=== PATIENT | male | born 1945 | race Caucasian/White ===

== ENCOUNTER → 2017-04-25 | Outpatient (CLI) | payer MEDICARE, BC ==
[~2017-04-25] MED LIST: ASPI81EC PO; ATOR80; CALCAVITD PO; IBUP400 PO; LOSA25; LOVA40 PO; METO25; MULVITMINF PO
== END | disposition home or self-care (01) ==
LOC: PLD 08:38 → LAB SHORT 08:38
DX: L57.0 Actinic keratosis (principal)
CPT/HCPCS: 88305

== ENCOUNTER 2021-07-12 11:55 | Day surgery (SDC) | payer MEDICARE, BC ==
[~2021-07-12] VITALS: Ht 167.6 cm; Wt 82.8 kg
--- NOTE | 2021-07-12 13:53 | NUR ---
07/12/21 3719 Angely Hensley TIMEOUT AND SITE CHECK DONE WITH DR VANG FOR NERVE BLOCK.
--- NOTE | 2021-07-12 14:48 | NUR ---
07/12/21 1448 ROSA DELANEY LIDOCAINE 1% MIXED WITH 0.3ML OF EPINEPHRINE TO CREATE A LOCAL SOLUTION OF LIDOCAINE 1% WITH 1:100,000 EPI. 10MLS INJECTED INTO OPSITE A LOCAL INJECTION.
== END 2021-07-12 16:12 | disposition home or self-care (01) ==
LOC: ORSCSDS 11:55
PROVIDERS: Orthopaedic Surgery
PROC: 0LM14ZZ Reattachment of Right Shoulder Tendon, Percutaneous Endoscopic Approach (ICD-10-PCS; principal; 2021-07-12 13:30)
PROC: 0RNJ4ZZ Release Right Shoulder Joint, Percutaneous Endoscopic Approach (ICD-10-PCS; principal; 2021-07-12 13:30)
PROC: 3E0U3GC Introduction of Other Therapeutic Substance into Joints, Percutaneous Approach (ICD-10-PCS; principal; 2021-07-12 13:30)
PROC: 0RBJ4ZZ Excision of Right Shoulder Joint, Percutaneous Endoscopic Approach (ICD-10-PCS; principal; 2021-07-12 13:30)
DX: M75.121 Complete rotator cuff tear or rupture of right shoulder, not specified as traumatic (principal); M75.21 Bicipital tendinitis, right shoulder; M75.41 Impingement syndrome of right shoulder; I10 Essential (primary) hypertension; I25.10 Atherosclerotic heart disease of native coronary artery without angina pectoris; E78.5 Hyperlipidemia, unspecified; Z79.899 Other long term (current) drug therapy; Z79.82 Long term (current) use of aspirin; Z87.891 Personal history of nicotine dependence
CPT/HCPCS: 29827; 29826; 29823; 0232T; C1713; C9781; J0171; J0690; J1100; J2250; J2370; J2405; J2704; J3010; J7120

== ENCOUNTER 2022-07-03 12:08 | Day surgery (SDC) | payer MEDICARE, BC ==
[~2022-07-03] VITALS: Ht 167.6 cm; Wt 83.2 kg
[2022-07-03 14:27] VITALS: BP 108/89
== END 2022-07-03 14:30 | disposition home or self-care (01) ==
LOC: ORSCSDS 12:08
PROVIDERS: Internal Medicine Gastroenterology
PROC: 0DBM8ZX Excision of Descending Colon, Via Natural or Artificial Opening Endoscopic, Diagnostic (ICD-10-PCS; principal; 2022-07-03 13:30)
PROC: 0DBL8ZX Excision of Transverse Colon, Via Natural or Artificial Opening Endoscopic, Diagnostic (ICD-10-PCS; principal; 2022-07-03 13:30)
DX: Z12.11 Encounter for screening for malignant neoplasm of colon (principal); Z86.010 Personal history of colon polyps; D12.4 Benign neoplasm of descending colon; D12.3 Benign neoplasm of transverse colon; K57.30 Diverticulosis of large intestine without perforation or abscess without bleeding; Z79.82 Long term (current) use of aspirin; Z79.899 Other long term (current) drug therapy
CPT/HCPCS: 88305; J2704; J7120

== ENCOUNTER 2023-03-08 12:09 | Day surgery (SDC) | payer MEDICARE, BC ==
[~2023-03-08] VITALS: Ht 167.6 cm; Wt 87.6 kg
[~2023-03-08 12:09] MED LIST changes: -ASPI81EC PO; +Aspir 8181 MG; -LOSA25; +LOSA25 PO
--- NOTE | 2023-03-08 13:28 | NUR ---
03/08/23 1328 Charu Chiu IN AT 1247 JEFF IN AT 1248 CALL LIGHT AT BEDSIDE
[2023-03-08 14:02] VITALS: BP 170/84
[2023-03-12] MEDS ORDERED: ATOR40TA PO (13:55)
[2023-03-12] MEDS ORDERED: VITAMIN B-121000 MCG PO (13:56)
[2023-03-12] MEDS ORDERED: Vitamin D1000 UNI1 PO (13:56)
[2023-03-12] MEDS ORDERED: [UNRECOGNIZED DRUG - OTHER] PO (13:59)
== END 2023-03-08 14:17 | disposition home or self-care (01) ==
LOC: ORSCSDS 12:09
PROVIDERS: Ophthalmology
PROC: 08RJ3JZ Replacement of Right Lens with Synthetic Substitute, Percutaneous Approach (ICD-10-PCS; principal; 2023-03-08 13:30)
DX: H25.13 Age-related nuclear cataract, bilateral (principal); I10 Essential (primary) hypertension; E78.00 Pure hypercholesterolemia, unspecified; I25.10 Atherosclerotic heart disease of native coronary artery without angina pectoris; Z87.891 Personal history of nicotine dependence; K21.9 Gastro-esophageal reflux disease without esophagitis; Z79.82 Long term (current) use of aspirin; Z79.899 Other long term (current) drug therapy
CPT/HCPCS: J2250; J3301; J7040; V2632

== ENCOUNTER 2023-03-15 09:42 | Day surgery (SDC) | payer MEDICARE, BC ==
[~2023-03-15] VITALS: Ht 167.6 cm; Wt 87.1 kg
[~2023-03-15 09:42] MED LIST changes: +ATOR40TA PO; +VITAMIN B-121000 MCG PO; +Vitamin D1000 UNI1 PO; +[UNRECOGNIZED DRUG - OTHER] PO
--- NOTE | 2023-03-15 10:31 | NUR ---
03/15/23 1031 Almita VickersINE PLACED IN LEFT EYE AT 1019. PLEDGET PLACED IN LEFT EYE AT 1020.
[2023-03-15 11:25] VITALS: BP 149/76
== END 2023-03-15 11:38 | disposition home or self-care (01) ==
LOC: ORSCSDS 09:42
PROVIDERS: Ophthalmology
PROC: 08RK3JZ Replacement of Left Lens with Synthetic Substitute, Percutaneous Approach (ICD-10-PCS; principal; 2023-03-15 11:00)
DX: H25.12 Age-related nuclear cataract, left eye (principal); Z96.1 Presence of intraocular lens; I10 Essential (primary) hypertension; K21.9 Gastro-esophageal reflux disease without esophagitis; Z87.891 Personal history of nicotine dependence; I25.10 Atherosclerotic heart disease of native coronary artery without angina pectoris; Z79.82 Long term (current) use of aspirin; Z79.899 Other long term (current) drug therapy
CPT/HCPCS: J2250; J3010; J3301; J7040; V2632

== ENCOUNTER 2023-03-28 08:59 | Day surgery (SDC) | payer MEDICARE, BC ==
[~2023-03-28] VITALS: Ht 167.6 cm; Wt 87.4 kg
--- NOTE | 2023-03-28 11:03 | NUR ---
03/28/23 1103 Cassie Stephens BP ELEVATED. SURGEON AWARE. PATIENT HAS A HX OF HTN AND NORMALLY TAKES BP MEDICATION. PATIENT DID NOT TAKE HIS MEDICATION THIS. HE WILL FOLLOW UP TAKING HIS MEDICATION AT HOME. BP HAS DECREASED IN OR. PATIENT WIHOUT S/S DISTRESS OR COMPLAINTS.
[2023-03-28 11:16] VITALS: BP 148/84
== END 2023-03-28 11:39 | disposition home or self-care (01) ==
LOC: ORSCSDS 08:59
PROVIDERS: Orthopaedic Surgery
PROC: 01N54ZZ Release Median Nerve, Percutaneous Endoscopic Approach (ICD-10-PCS; principal; 2023-03-28 10:30)
DX: G56.03 Carpal tunnel syndrome, bilateral upper limbs (principal); G56.01 Carpal tunnel syndrome, right upper limb; I10 Essential (primary) hypertension; E78.5 Hyperlipidemia, unspecified; Z87.891 Personal history of nicotine dependence; Z79.82 Long term (current) use of aspirin; Z79.899 Other long term (current) drug therapy
CPT/HCPCS: J7120